=== PATIENT | male | born 1955 | race Caucasian/White ===

== ENCOUNTER 2018-02-18 11:43 | Inpatient (IN) | payer MEDICARE ==
[~2018-02-18] VITALS: Ht 180.3 cm; Wt 61.2 kg
--- NOTE | 2018-02-18 11:59 | NUR ---
PT IS IN ROOM #2A. DR MAGAÑA EVALUATED THE PT.
[2018-02-18] MEDS ORDERED: IV NORMAL SALINE 500 ML BAG IV ONE (12:00)
[2018-02-18 12:06] LABS: BASOPHILS % (AUTO) 0.7 % (0.0-2.0); EOSINOPHILS % (AUTO) 0.6 % (0.0-7.0); HEMATOCRIT 38.3 % (36.7-47.1); HEMOGLOBIN 13.1 g/dL (12.5-16.3); LYMPHOCYTES # (AUTO) 0.4 K/uL (20.0-40.0); LYMPHOCYTES % (AUTO) 5.8 % (20.5-51.5); MEAN CORPUSCULAR HEMOGLOBIN 36.6 uug (23.8-33.4); MEAN CORPUSCULAR HGB CONC 34 g/dL (32.5-36.3); MEAN CORPUSCULAR VOLUME 107.1 fL (73.0-96.2); MONOCYTES # (AUTO) 0.5 K/uL (2.0-10.0); MONOCYTES % (AUTO) 7.5 % (0.0-11.0); NEUTROPHILS # (AUTO) 5.4 K/uL (1.8-8.9); NEUTROPHILS % (AUTO) 85.4 % (38.5-71.5); PLATELET COUNT (AUTO) 236 K/uL (152-348); RED BLOOD CELL COUNT(AUTO) 3.58 MIL/uL (4.06-5.63); WHITE BLOOD COUNT (AUTO) 6.3 K/uL (3.6-10.2)
[2018-02-18] MEDS ORDERED: ATOR40TA PO (12:12)
[2018-02-18] MEDS ORDERED: HYDR-548 PO (12:12)
[2018-02-18] MEDS ORDERED: ASPI-605 PO (12:12)
[2018-02-18] MEDS ORDERED: NYST50002 PO (12:12)
[2018-02-18] MEDS ORDERED: FOLI1TAB16 PO (12:12)
[2018-02-18] MEDS ORDERED: MULT1TAB73 PO (12:12)
[2018-02-18] MEDS ORDERED: GABA300C PO (12:12)
[2018-02-18] MEDS ORDERED: METO-356 PO (12:12)
[2018-02-18] MEDS ORDERED: LEVE1000 PO (12:12)
[2018-02-18] MEDS ORDERED: OMEG-88 PO (12:12)
[2018-02-18] MEDS ORDERED: FAMO20VI2 PO (12:12)
[2018-02-18] MEDS ORDERED: CLOP75TA15 PO (12:12)
[2018-02-18] MEDS ORDERED: HYDR-3326 PO (12:12)
[2018-02-18 12:16] LABS: CREATININE 1.1 mg/dL (0.6-1.3); POTASSIUM 3.5 mmol/L (3.5-5.1)
[2018-02-18 12:17] LABS: NEUTROPHILS % (MANUAL) 0 % (42-75)
[2018-02-18 12:23] LABS: BILIRUBIN,DIRECT 0.2 mg/dL (0.0-0.2); BILIRUBIN,TOTAL 0.7 mg/dL (0.2-1.0); TOTAL PROTEIN, SERUM 6.9 g/dL (6.4-8.2)
--- NOTE | 2018-02-18 13:20 | NUR ---
REPORT WAS GIVEN TO CLINICAL EVALUATOR. PT WAS TRANSFERED TO ROOM #221.
[2018-02-18 13:40] LABS: *BILIRUBIN,URIN NEGATIVE (NEGATIVE); *BLOOD, URINE NEGATIVE (NEGATIVE); *CLARITY,URINE CLEAR (CLEAR); *COLOR,URINE YELLOW (YELLOW); *KETONES,URINE NEGATIVE (NEGATIVE); *PROTEIN,URINE NEGATIVE (NEGATIVE); *UROBILINOGEN,URINE 0.2 E.U./dl (NORMAL); LEUKOCYTE ESTERASE ,URINE NEGATIVE (NEGATIVE); NITRITE, URINE NEGATIVE (NEGATIVE); PH,URINE 5.5 (5.0-8.0); UGLUCOSE NEGATIVE (NEGATIVE)
--- NOTE | 2018-02-18 13:50 | NUR ---
SBAR report received from ER nurse Edison. Pt transported via gurney. Pt assessed, denies pain, expresses being tired and wanting to rest at this time. Pt agrees to answer initial assessment questions, oriented to room and unit. Board updated. Bed in locked and lowest position, side rails up x2. Call light and personal items within reach. Will continue to monitor and assess.
[2018-02-18 14:43] VITALS: BP 100/64
[2018-02-18] MEDS ORDERED: LORAZEPAM 2 MG/1 ML VIAL IV PRN (14:45)
[2018-02-18] MEDS ORDERED: ACETAMINOPHEN 325 MG TABLET PO PRN (14:45)
[2018-02-18] MEDS ORDERED: HYDROCODONE/APAP 10-325 MG TABLET PO PRN (14:45)
[2018-02-18] MEDS ORDERED: MAGNESIUM HYDROXIDE 30 ML LIQUID UDC PO PRN (14:45)
[2018-02-18] MEDS ORDERED: ONDANSETRON 4 MG/2 ML VIAL IV PRN (14:45)
[2018-02-18 15:15] VITALS: BP 96/64
[2018-02-18] MEDS: DEXAMETHASONE SOD PHOSPHATE 4 MG INJ IV SCH ×2 (16:39→20:46)
[2018-02-18] MEDS: HYDROCODONE/APAP 5-325MG TABLET PO PRN (16:39)
--- NOTE | 2018-02-18 18:58 | NUR ---
Pt VSS. Pt seen by Dr. Evangelista. New orders received. Pt reports pain 6/10 relieved by [place], administered per PRN orders. Skin assessment completed, consisting of old surgical scar midline chest from 2013 triple bypass following heart attack. It is noted that this is when Pt chose to quite smoking. IV intact, flushed, and patent. No acute distress or SOB noted. Currently, HR is normal sinus rhythm. Call light and personal belongings placed within reach. All safety and comfort measures implemented. Will continue to monitor and endorse to oncoming telecommunicator supervisor.
--- NOTE | 2018-02-18 19:00 | NUR ---
PATIENT ALERT ORIENTED, NO SOB NO CHEST PAIN NOTED, TELE READING NORMAL SINUS RHYTHM, NO COMPLAIN OF PAIN AT THIS TIME. PATIENT ABLE TO MOVED RIGHT FOOT, WHEN ASKED TO MOVED IT. BOTH HANDS NITRO MAN WERE BOTH STRONG, LEFT FOOT AND LEG ABLE TO MOVED, PATIENT HAS NO FACIAL DROPPING NOTED. PATIENT REFUSED DVT SLEEVES PLUS PUMP, STATED "I DONT WANT IT, IT BOTHER ME" EXPLAINED THE RISK AND BENEFIT, BUT REFUSED. CONT TO MONITOR.
[2018-02-18 19:27] VITALS: BP 128/87
[2018-02-18] MEDS: ATORVASTATIN 40 MG TABLET PO SCH (20:43)
[2018-02-18] MEDS: DOCUSATE SODIUM 100 MG CAPSULE PO SCH (20:43)
[2018-02-18] MEDS: LEVETIRACETAM 500 MG TABLET PO SCH (20:45)
[2018-02-18] MEDS ORDERED: Medication Not On Formulary EA (Levetiracetam (Keppra) 1,000 MG) PO SCH (21:00)
[2018-02-18] MEDS: GABAPENTIN 300 MG CAPSULE PO SCH (22:26)
[2018-02-18 23:35] VITALS: BP 124/88
[2018-02-19] MEDS: HYDROCODONE/APAP 5-325MG TABLET PO PRN ×2 (02:56→23:53)
[2018-02-19 03:41] VITALS: BP 123/83
[2018-02-19] MEDS: PANTOPRAZOLE SODIUM 40 MG TABLET.DR PO SCH (06:03)
[2018-02-19] MEDS: GABAPENTIN 300 MG CAPSULE PO SCH ×3 (06:03→22:01)
[2018-02-19 06:38] LABS: BASOPHILS % (AUTO) 0.3 % (0.0-2.0); HEMATOCRIT 39.5 % (36.7-47.1); HEMOGLOBIN 13.6 g/dL (12.5-16.3); LYMPHOCYTES # (AUTO) 0.4 K/uL (20.0-40.0); LYMPHOCYTES % (AUTO) 6.9 % (20.5-51.5); MEAN CORPUSCULAR HEMOGLOBIN 36.7 uug (23.8-33.4); MEAN CORPUSCULAR HGB CONC 34 g/dL (32.5-36.3); MEAN CORPUSCULAR VOLUME 106.9 fL (73.0-96.2); MONOCYTES # (AUTO) 0.4 K/uL (2.0-10.0); MONOCYTES % (AUTO) 6.6 % (0.0-11.0); NEUTROPHILS # (AUTO) 4.9 K/uL (1.8-8.9); NEUTROPHILS % (AUTO) 86.2 % (38.5-71.5); PLATELET COUNT (AUTO) 238 K/uL (152-348); WHITE BLOOD COUNT (AUTO) 5.7 K/uL (3.6-10.2)
--- NOTE | 2018-02-19 06:52 | NUR ---
PATIENT AWAKE NO SOB NO CHEST PAIN, COMPLAIN OF PAIN OF L HIP AND LEFT GROIN, MEDICATED FOR PAIN, EFFECTIVE AFTER ONE HOUR, TELE MONITOR SINUS RHYTHM AT THIS TIME. CALL LIGHT WITHIN REACH. CALL LIGHT WITHIN REACH.
[2018-02-19 06:57] LABS: THYROID STIMULATING HORMONE 78.679 mIU/mL (0.358-3.740)
[2018-02-19 07:25] LABS: BILIRUBIN,TOTAL 0.7 mg/dL (0.2-1.0); CREATININE 1.2 mg/dL (0.6-1.3); MAGNESIUM 2.3 mg/dL (1.8-2.4); PHOSPHOROUS 3.9 mg/dL (2.5-4.9); TOTAL PROTEIN, SERUM 6.6 g/dL (6.4-8.2)
[2018-02-19 08:00] VITALS: BP 113/71
[2018-02-19] MEDS: ASPIRIN EC 81 MG TABLET.DR PO SCH ×2 (08:47→08:51)
[2018-02-19] MEDS: LEVETIRACETAM 500 MG TABLET PO SCH ×2 (08:47→20:20)
[2018-02-19] MEDS: CLOPIDOGREL 75 MG TABLET PO SCH (08:47)
[2018-02-19] MEDS: FOLIC ACID 1 MG TABLET PO SCH (08:47)
[2018-02-19] MEDS: METOPROLOL SUCCINATE XL 25 MG TAB.SR.24H PO SCH (08:47)
[2018-02-19] MEDS: MULTIVITAMINS,THERAPEUTIC TABLET PO SCH (08:47)
[2018-02-19] MEDS: DEXAMETHASONE SOD PHOSPHATE 4 MG INJ IV SCH ×2 (08:48→20:21)
[2018-02-19] MEDS ORDERED: EPA PO SCH (09:00)
[2018-02-19] MEDS ORDERED: Medication Not On Formulary EA (Multivitamins (Multivitamin) 1 EACH) PO SCH (09:00)
[2018-02-19] MEDS ORDERED: DHA PO SCH (09:00)
[2018-02-19] MEDS ORDERED: OMEGA PO SCH (09:00)
[2018-02-19] MEDS ORDERED: [UNRECOGNIZED DRUG - OTHER] PO SCH (09:00)
[2018-02-19] MEDS ORDERED: FISH OIL PO SCH (09:00)
[2018-02-19 11:05] VITALS: BP 107/77
[2018-02-19] MEDS ORDERED: LEVOTHYROXINE SODIUM 100 MCG VIAL IV ONE (12:05)
--- NOTE | 2018-02-19 12:10 | NUR ---
Patient has decreased TSH level. Dr. Evangelista ordered Synthroid IV. Patient refused the medication. Explained the importance several times but still patient refused. Dr. Evangelista informed. aware.
--- NOTE | 2018-02-19 14:36 | NUR ---
PATIENT WAS SEEN AND EXAMINED TODAY BY DR. BOSS (NEUROLOGIST) WITH NEW ORDER FOR AN MRI OF THE BRAIN WWO CONTRAST FOR FURTHER EVALUATION OF THE ABNORMAL CT HEAD RESULT. BUT PATIENT REFUSED TO HAVE THE PROCEDURE TODAY. EXPLAINED TO PATIENT THE IMPORTANCE OF THE PROCEDURE BUT STILL PATIENT REFUSED. DR. SHOOK MADE AWARE AND AGREED. PAGED DR. BOSS, AWAITING FOR THE CALL BACK. CALLED [facility] SPOKE TO WANDA AND INFORMED THAT THE PATIENT IS REFUSING TO HAVE HIS PROCEDURE DONE TODAY. WILL CONTINUE TO MONITOR.
--- NOTE | 2018-02-19 18:10 | NUR ---
NURSE NOTES; patient alert and oriented remained stable throughout the shift. Received call from True (patient's brother, person to notify) informed that the patient was seen and examined today by Dr. Osborne and she ordered an MRI but unfortunately patient refused the procedure today. brother stated "that's fine". Safety precautions observed, meaningful hourly rounding done, bed alarm and bed brakes on for safety. call light, telephone and urinal within reach at all times. all needs were attended and anticipated. will continue to monitor. will endorse accordingly to next shift for continuity of care.
--- NOTE | 2018-02-19 19:40 | NUR ---
RECEIVED IN BED ALERT ORIENTED, NO SOB NO CHEST PAIN, RHYTHM SINUS RHYTHM AT THIS TIME. NO COMPLAIN OF PAIN AT THIS TIME. PATIENT USES URINAL FOR BLADDER ELIMINATION, AND ASSIST TO BATHROOM WITH WALKER FOR BATHROOM USE, ASSISTED WITH [facility]. CALL LIGHT WITHIN REACH.
[2018-02-19] MEDS: ATORVASTATIN 40 MG TABLET PO SCH (20:21)
[2018-02-19] MEDS: DOCUSATE SODIUM 100 MG CAPSULE PO SCH (20:28)
[2018-02-19 20:41] VITALS: BP 104/63
[2018-02-20 00:24] VITALS: BP 132/76
[2018-02-20 04:57] VITALS: BP 109/67
[2018-02-20] MEDS: GABAPENTIN 300 MG CAPSULE PO SCH ×3 (05:33→22:27)
--- NOTE | 2018-02-20 05:46 | NUR ---
PATIENT SLEPT MOST OF THE NIGHT, NO SOB NO CHEST PAIN, TELE READING SINUS RHYTHM 82, PAIN MEDICATIONS EFFECTIVE AFTER ONE, DUE TO COMPLAIN OF GEN BODY PAIN. USES URINAL FOR BLADDER ELIMINATION, PATIENT HAD BOWEL MOVEMENT LAST NIGHT. NO SEIZURE ACTIVITY NOTED ON THIS SHIFT, PADDED SIDE RAILS PROVIDED, CONT TO MONITOR. CALL LIGHT WITHIN REACH.
[2018-02-20] MEDS: PANTOPRAZOLE SODIUM 40 MG TABLET.DR PO SCH (06:10)
[2018-02-20] MEDS: LEVOTHYROXINE SODIUM 50 MCG TABLET PO SCH (06:10)
[2018-02-20] MEDS: ASPIRIN EC 81 MG TABLET.DR PO SCH (08:00)
[2018-02-20] MEDS: HYDROCODONE/APAP 5-325MG TABLET PO PRN ×2 (08:00→18:30)
[2018-02-20] MEDS: FOLIC ACID 1 MG TABLET PO SCH (08:01)
[2018-02-20] MEDS: CLOPIDOGREL 75 MG TABLET PO SCH (08:01)
[2018-02-20] MEDS: MULTIVITAMINS,THERAPEUTIC TABLET PO SCH (08:01)
[2018-02-20] MEDS: METOPROLOL SUCCINATE XL 25 MG TAB.SR.24H PO SCH (08:01)
[2018-02-20] MEDS: LEVETIRACETAM 500 MG TABLET PO SCH ×2 (08:01→20:02)
[2018-02-20] MEDS: DEXAMETHASONE SOD PHOSPHATE 4 MG INJ IV SCH ×2 (08:45→20:01)
[2018-02-20] MEDS ORDERED: GADODIAMIDE 5 MMOL/10 ML VIAL ONE (11:16)
[2018-02-20] MEDS ORDERED: GADODIAMIDE 2.5 MMOL/5 ML VIAL ONE (11:16)
[2018-02-20 11:20] VITALS: BP 118/77
[2018-02-20 15:16] VITALS: BP 118/77
--- NOTE | 2018-02-20 18:53 | NUR ---
PT IS CALM, COOPERATIVE, HAS SEVERE WEAKNESS ON THE RIGHT LEG, HAS TROUBLE LEFT LEG UP IN CHAIR. PT REPORTS PAIN 8/10, NORCO GIVEN AND IS EFFECTIVE. PT HAS NO SIGNS OF RESPIRATORY DISTRESS AT THIS TIME. CONTINUE TO MONITOR PT.
--- NOTE | 2018-02-20 19:30 | NUR ---
Received patient in stable condition. Patient sleeping at start of shift, easily arousing. Vital signs within normal range. Pertinent assessment completed. A/Ox4 & able to make all his needs known. Noted with Left AC 22G which is patent & flushing well. Per day shift nurse, patient to go for an MRI at [facility] at 2100, all documents are prepared & ready to go. On seizure precautions with bed rail pads present. Call light in reach. Will continue to monitor through shift.
[2018-02-20 19:37] VITALS: BP 110/71
[2018-02-20] MEDS: ATORVASTATIN 40 MG TABLET PO SCH (20:01)
[2018-02-20] MEDS: DOCUSATE SODIUM 100 MG CAPSULE PO SCH (20:03)
--- NOTE | 2018-02-20 20:55 | NUR ---
Patient left to [facility] via ambulance/stretcher for MRI. Report given to EMT staff with patient info/envelope. Vital signs stable at chart picker. No acute distress noted. IV in left AC is patent, flushing well for MRI.
--- NOTE | 2018-02-20 22:25 | NUR ---
Patient returned from [facility] in stable condition via ambulance/stretcher. No acute distress. Per EMT, MRI results to be emailed to hospital. Will continue to monitor.
[2018-02-21] MEDS: HYDROCODONE/APAP 5-325MG TABLET PO PRN (01:48)
[2018-02-21 04:49] VITALS: BP 120/76
[2018-02-21 05:44] LABS: BASOPHILS % (AUTO) 0.2 % (0.0-2.0); EOSINOPHILS % (AUTO) 0.1 % (0.0-7.0); HEMATOCRIT 35.4 % (36.7-47.1); HEMOGLOBIN 12.5 g/dL (12.5-16.3); LYMPHOCYTES # (AUTO) 0.5 K/uL (20.0-40.0); MEAN CORPUSCULAR HEMOGLOBIN 37.2 uug (23.8-33.4); MEAN CORPUSCULAR HGB CONC 35 g/dL (32.5-36.3); MEAN CORPUSCULAR VOLUME 105.4 fL (73.0-96.2); MONOCYTES # (AUTO) 0.4 K/uL (2.0-10.0); MONOCYTES % (AUTO) 6.4 % (0.0-11.0); NEUTROPHILS # (AUTO) 5.9 K/uL (1.8-8.9); NEUTROPHILS % (AUTO) 86.3 % (38.5-71.5); PLATELET COUNT (AUTO) 235 K/uL (152-348); RED BLOOD CELL COUNT(AUTO) 3.36 MIL/uL (4.06-5.63); WHITE BLOOD COUNT (AUTO) 6.8 K/uL (3.6-10.2)
[2018-02-21] MEDS: LEVOTHYROXINE SODIUM 50 MCG TABLET PO SCH (06:22)
[2018-02-21] MEDS: GABAPENTIN 300 MG CAPSULE PO SCH ×2 (06:22→14:48)
[2018-02-21] MEDS: PANTOPRAZOLE SODIUM 40 MG TABLET.DR PO SCH (06:22)
[2018-02-21 06:37] LABS: CREATININE 1.2 mg/dL (0.6-1.3); MAGNESIUM 2.1 mg/dL (1.8-2.4); PHOSPHOROUS 3.2 mg/dL (2.5-4.9); POTASSIUM 4.1 mmol/L (3.5-5.1)
--- NOTE | 2018-02-21 06:38 | NUR ---
Patient stable through the shift. Vital signs within range. All needs attended to promptly. All medications given per MD order. Pain management provided. Safety & comfort measures implemented. Call light within reach. Will endorse to oncoming shift.
[2018-02-21 06:48] LABS: THYROID STIMULATING HORMONE 90.404 mIU/mL (0.358-3.740)
[2018-02-21 08:00] VITALS: BP 120/76
[2018-02-21] MEDS: DEXAMETHASONE SOD PHOSPHATE 4 MG INJ IV SCH (09:00)
[2018-02-21] MEDS: LEVETIRACETAM 500 MG TABLET PO SCH (09:36)
[2018-02-21] MEDS: MULTIVITAMINS,THERAPEUTIC TABLET PO SCH (09:36)
[2018-02-21] MEDS: METOPROLOL SUCCINATE XL 25 MG TAB.SR.24H PO SCH (09:37)
[2018-02-21] MEDS: CLOPIDOGREL 75 MG TABLET PO SCH (09:37)
[2018-02-21] MEDS: ASPIRIN EC 81 MG TABLET.DR PO SCH (09:37)
[2018-02-21] MEDS: FOLIC ACID 1 MG TABLET PO SCH (09:37)
[2018-02-21] MEDS ORDERED: LEVOTHYROXINE SODIUM 100 MCG VIAL IV ONE (10:22)
[2018-02-21 16:00] VITALS: BP 136/79
--- NOTE | 2018-02-21 16:00 | NUR ---
RESTING WELL IN BED NO SOB OR PAIN ,BED [place] AND CALLLIGHT IN REACH VOIDING WELL USE URINAL AT BEDSIDE
--- NOTE | 2018-02-21 17:00 | NUR ---
EAT DINNER WELL PO FLD ENC CARLOS MOD AMT DR GARCIA SEEN PATIENT AND LAB RESULT TODAY POSS D/C TO [facility]
--- NOTE | 2018-02-21 17:20 | NUR ---
STABLE HEMODYNAMIC STATUS ,PAIN UNDER CONTROL NO ACUTE DISTRESS SAFETY MEASURE PROVIDED CALLLIGHT IN REACH
[2018-02-21] MEDS ORDERED: DRONABINOL 2.5 MG CAPSULE PO SCH (17:30)
[2018-02-21] MEDS ORDERED: PANT40TA2 PO (18:16)
[2018-02-21] MEDS ORDERED: LEVO100T10 PO (18:16)
[2018-02-21] MEDS ORDERED: DRON2.5C3 PO (18:16)
[2018-02-21] MEDS ORDERED: DEXA4TAB68 PO (18:36)
== END 2018-02-21 19:30 | DRG 54 ==
LOC: ER 11:46 → TELE 13:27 → MED 02-20 13:18
PROVIDERS: ADMIT Internal Medicine; ATTEND Internal Medicine
DX: C79.31 Secondary malignant neoplasm of brain (principal); G93.6 Cerebral edema; G81.91 Hemiplegia, unspecified affecting right dominant side; C34.90 Malignant neoplasm of unspecified part of unspecified bronchus or lung; Z68.1 Body mass index [BMI] 19.9 or less, adult; G93.40 Encephalopathy, unspecified; C79.51 Secondary malignant neoplasm of bone; Z79.02 Long term (current) use of antithrombotics/antiplatelets; Z79.82 Long term (current) use of aspirin; I25.10 Atherosclerotic heart disease of native coronary artery without angina pectoris; I10 Essential (primary) hypertension; Z95.1 Presence of aortocoronary bypass graft; Z87.891 Personal history of nicotine dependence; R62.7 Adult failure to thrive; G40.909 Epilepsy, unspecified, not intractable, without status epilepticus; E78.5 Hyperlipidemia, unspecified; E11.9 Type 2 diabetes mellitus without complications; I25.2 Old myocardial infarction; E03.9 Hypothyroidism, unspecified; D75.89 Other specified diseases of blood and blood-forming organs; Z66 Do not resuscitate
CPT/HCPCS: 36415; 70030-TC; 70450; 70553; 71045; 83550; 83605; 83735; 84100; 84443; 85025; 85730; 87086; 93005; 97116; 97530; A4663; J1100; J7030; Q0167